=== PATIENT | male | born 1965 | race Caucasian/White ===

== ENCOUNTER 2020-12-01 15:32 | Emergency (ER) | payer SELFPAY ==
[~2020-12-01 15:32] MED LIST: PREVACID30 M1 PO
== END 2020-12-01 19:15 | disposition left against medical advice (07) | DRG 951 ==
LOC: ED 15:32 → LWOBS 19:15
DX: Z53.21 Procedure and treatment not carried out due to patient leaving prior to being seen by health care provider (principal)